=== PATIENT | female | born 1975 | race African-American/Black ===

== ENCOUNTER 2018-12-22 16:00 | Emergency (ER) | payer MEDICAID, OTHER ==
[~2018-12-22] VITALS: Ht 165.1 cm; Wt 73.0 kg
[2018-12-22] MEDS ORDERED: KETOROLAC 60MG/2ML VIAL IM ONE (17:15)
[2018-12-22 18:45] VITALS: BP 136/67
== END 2018-12-22 18:45 | disposition home or self-care (01) ==
LOC: ER 16:00
DX: S70.01XA Contusion of right hip, initial encounter (principal); S33.5XXA Sprain of ligaments of lumbar spine, initial encounter; V49.49XA Driver injured in collision with other motor vehicles in traffic accident, initial encounter; Y93.89 Activity, other specified; Y92.89 Other specified places as the place of occurrence of the external cause; Y99.8 Other external cause status; Z88.2 Allergy status to sulfonamides; Z88.1 Allergy status to other antibiotic agents
CPT/HCPCS: 72070; 72100; 72170; 81025; 96372; 99283; J1885